=== PATIENT | female | born 1980 | race Two or more races ===

== ENCOUNTER 2016-10-09 23:34 | Emergency (ER) | payer OTHER ==
--- NOTE | 2016-10-09 23:57 | EDM.PDOC ---
ED HPI GI/ABDOMINAL - General Chief Complaint: Abdominal Pain Stated Complaint: ABD PAIN, BLOOD IN STOOL Time Seen by Provider: 10/09/16 23:55 Source of Information: Reports: Patient, Family History Limitations: Reports: No limitations - History of Present Illness INITIAL COMMENTS - FREE TEXT/NARRATIVE: spouse states Pt been having abd' pain all day no vomiting but loose stools which progressed to watery diarrhoea tonight and had blood in it. states had tubes tied. - Related Data Allergies/ADRs: Allergies Allergy/AdvReac Type Severity Reaction Status Date / Time No Known Allergies Allergy Verified 10/09/16 23:43 Home Meds: Home Meds Escitalopram [Lexapro] 20 mg PO DAILY 10/09/16 [History] Hydrocodone/Acetaminophen [Hydrocodon-Acetaminophen 5-325] 5 - 325 mg PO Q4HR PRN 10/09/16 [History] Methocarbamol 750 mg PO BID 10/09/16 [History] Methylphenidate HCl [Methylphenidate ER] 20 mg PO DAILY 10/09/16 [History] QUEtiapine [SEROquel] 25 mg PO BEDTIME 10/09/16 [History] traMADol [Ultram] 50 mg PO Q4H 10/09/16 [History] ED ROS GENERAL - Review of Systems Review Of Systems: ROS reveals no pertinent complaints other than HPI. ED EXAM, GI/ABD - Physical Exam Exam: See Below Exam Limited By: No limitations General Appearance: alert, WD/WN, mild distress, other (tearful) Ears: hearing grossly normal Throat/Mouth: Normal voice, No airway compromise Head: atraumatic Neck: non-tender, full range of motion Respiratory/Chest: no respiratory distress Cardiovascular: regular rate, rhythm GI/Abdominal: hyperactive bowel sounds, tenderness, guarding, other (suprapubic region). No: distention, rebound, rigidity Neurological: alert, oriented, normal cognition, normal gait, no motor/sensory deficits Psychiatric: flat affect Skin Exam: Warm, Dry Lymphatic: no adenopathy Course - Vital Signs Last Recorded V/S: Last Vital Signs Temp 36.6 C 10/10/16 01:20 Pulse 86 10/10/16 01:20 Resp 18 10/10/16 01:20 BP 127/58 L 10/10/16 01:20 Pulse Ox 97 10/10/16 01:20 - Orders/Labs/Meds Labs: Laboratory Tests 10/09/16 10/09/16 Range/Units 23:45 23:45 WBC 20.3 H (5.0-10.0) 10^3/uL RBC 4.80 (4.2-5.4) 10^6/uL Hgb 13.4 (12.0-16.0) g/dL Hct 41.0 (37.0-47.0) % MCV 85.4 (80-100) fL MCH 27.9 (27.0-34.0) pg MCHC 32.7 L (33.0-35.0) g/dL Plt Count 490 H (150-450) 10^3/uL Neut % (Auto) 82.8 H (42.2-75.2) % Lymph % (Auto) 12.2 L (20.5-50.1) % [place] % (Auto) 4.4 (2-8) % Eos % (Auto) 0.5 L (1.0-3.0) % Baso % (Auto) 0.1 (0.0-1.0) % Sodium 139 (135-145) mmol/L Potassium 4.0 (3.6-5.0) mmol/L Chloride 104 (101-111) mmol/L Carbon Dioxide 26.0 (21.0-31.0) mmol/L Anion Gap 13.0 BUN 16 (7-18) mg/dL Creatinine 0.8 (0.6-1.3) mg/dL Est Cr Clr Drug Dosing TNP Estimated GFR (MDRD) > 60 BUN/Creatinine Ratio 20.00 Glucose 118 H (74-105) mg/dL Calcium 9.5 (8.4-10.2) mg/dl Total Bilirubin 0.4 (0.2-1.0) mg/dL AST 70 H (10-42) IU/L ALT 90 H (10-60) IU/L Alkaline Phosphatase 105 (42-121) IU/L Total Protein 8.8 H (6.7-8.2) g/dl Albumin 4.5 (3.2-5.5) g/dl Globulin 4.3 Albumin/Globulin Ratio 1.05 HCG, Qual Negative Meds: Medications Discontinued Medications Generic Name Dose Route Start Last Admin Trade Name Freq PRN Reason Stop Dose Admin Acetaminophen/Hydrocodone Bitart 1 tab 10/10/16 02:28 [place] 325-10 Mg PO 10/10/16 02:29 ONETIME ONE Sodium Chloride 1,000 mls @ 999 mls/hr 10/10/16 01:13 10/10/16 01:18 Normal Saline IV 10/10/16 02:13 999 mls/hr .BOLUS ONE Administration Iopamidol 100 ml 10/10/16 00:22 10/10/16 00:23 Isovue-300 (61%) IVPUSH 10/10/16 00:23 100 ml ONETIME ONE Administration Ketorolac Tromethamine 15 mg 10/10/16 01:46 10/10/16 01:51 Toradol IVPUSH 10/10/16 01:47 15 mg ONETIME ONE Administration Morphine Sulfate 2 mg 10/10/16 00:17 10/10/16 00:24 Morphine IVPUSH 10/10/16 00:18 2 mg ONETIME ONE Administration Ondansetron HCl 4 mg 10/10/16 00:17 10/10/16 00:24 Zofran IV 10/10/16 00:18 4 mg ONETIME ONE Administration Ondansetron HCl 4 mg 10/10/16 02:28 Zofran Odt PO 10/10/16 02:29 ONETIME ONE Tamsulosin HCl 0.4 mg 10/10/16 02:28 Flomax PO 10/10/16 02:29 ONETIME ONE - Re-Assessments/Exams Free Text/Narrative Re-Assessment/Exam: 10/10/16 02:30 s/p IV+Rx= much better. results discussed with Pt & spouse. Departure - Departure Time of Disposition: 02:31 Disposition: Home, Self-Care 01 Condition: good Clinical Impression: Renal calculus or stone Instructions: Kidney Stones, [id number] Forms: ED Department Discharge Additional Instructions: 1) drink lots of liquids 2) strain all urine and bring stone to clinic 3) follow up at at clinic or recheck as needed rx given: zofran 4mg ODT bid x 6 flomax 0.4mg bid x 4
[2016-10-10 00:11] LABS: CHLORIDE,CL 104 mmol/L (101-111); SODIUM,NA 139 mmol/L (135-145)
[2016-10-10] MEDS ORDERED: Ondansetron 4 MG/2 ML SDV IV ONE (00:17)
[2016-10-10] MEDS ORDERED: Morphine 2 MG/ML Syringe IVPUSH ONE (00:17)
[2016-10-10] MEDS ORDERED: Iopamidol 612 MG/ML 100 ML Bottle IVPUSH ONE (00:22)
[2016-10-10] MEDS ORDERED: Sodium Chloride 0.9% 1,000 ML IV ONE (01:13)
[2016-10-10 01:22] VITALS: BP 127/58
[2016-10-10] MEDS ORDERED: Ketorolac 30 MG/ML SDV IVPUSH ONE (01:46)
[2016-10-10] MEDS ORDERED: Acetaminophen/HYDROcodone 325-10 MG Tab PO ONE (02:28)
[2016-10-10] MEDS ORDERED: Ondansetron 4 MG Tab.DIS PO ONE (02:28)
[2016-10-10] MEDS ORDERED: Tamsulosin 0.4 MG Cap.ER PO ONE (02:28)
== END 2016-10-10 02:55 | disposition home or self-care (01) ==
LOC: DL.ED 23:34
DX: N20.2 Calculus of kidney with calculus of ureter (principal); Z79.899 Other long term (current) drug therapy
CPT/HCPCS: 36415; 74177; 80053; 84703; 85025; 96361; 96374; 96375; 99284; A9270; J1885; J2270; J2405; J7030; Q9967; 99283